=== PATIENT | female | born 1965 ===

== ENCOUNTER 2018-04-26 23:18 | Emergency (ER) | payer BC ==
[~2018-04-26] VITALS: Ht 162.6 cm; Wt 99.8 kg
[2018-04-26] MEDS ORDERED: DEXILANT30 MG ORAL (23:30)
[2018-04-26] MEDS ORDERED: CRESTOR10 M2 ORAL (23:31)
[2018-04-26] MEDS ORDERED: ZYBAN150 MG ORAL (23:31)
--- NOTE | 2018-04-26 23:37 | NUR ---
ED Nurse Note: Patient reports pain in the left hand that radiates to elbow. Patient reports pain began after she fluffed pillows. Patient notes no other trauma.
[2018-04-26 23:38] VITALS: BP 125/78
[2018-04-26] MEDS ORDERED: Norco 5mg/325mg tab ORAL ONE (23:45)
[2018-04-26] MEDS ORDERED: HYDROCODON-ACE1 EA15 ORAL (23:50)
[2018-04-26] MEDS ORDERED: IBUPROFEN600 MG ORAL (23:50)
--- NOTE | 2018-04-26 23:50 | Emergency Room Report ---
History of Present Illness General Chief Complaint: Upper Extremity Injury Source: Patient Present Illness [facility] This is a 53-year-old female who is right-hand dominant. She presents with left wrist pain. This occur last week after she was lifting a couch. She felt pain and since then fell swelling and pain. Pain is 7 out of 10. Worse with twisting and movement. Better with rest. No trauma. No fever chills but no nausea no vomiting. Never had this problem before. I see has not help. Allergies: Coded Allergies: CAPSAICIN (Verified Allergy, Unknown, 04/26/18) CEFUROXIME (Verified Allergy, Unknown, 04/26/18) MENTHOL (Verified Allergy, Unknown, 04/26/18) NAPROXEN (Verified Allergy, Unknown, 04/26/18) Patient History Past Medical History: see triage record, old chart reviewed Past Surgical History: other Pertinent Family History: none Social History: Denies: smoking Last Menstrual Period: HX of hysterectomy Now: No Immunizations: other Reviewed Nursing Documentation: PMH: Agreed; PSxH: Agreed Nursing Documentation-PMH Hx COPD: Yes - pt stated Slight case of COPD Review of Systems Eye: Denies: eye pain, blurred vision ENT: Denies: ear pain, nose congestion, throat swelling Respiratory: Denies: cough, shortness of breath Cardiovascular: Denies: chest pain, palpitations Gastrointestinal: Denies: abdominal pain, diarrhea, nausea, vomiting Musculoskeletal: Reports: joint pain; Denies: back pain Skin: Denies: rash Neurological: Denies: headache, numbness Endocrine: Denies: increased thirst, increased urine Hematologic/Lymphatic: Denies: easy bruising All Other Systems: negative except mentioned in HPI Physical Exam Vital Signs Date Time Temp Pulse Resp B/P (MAP) Pulse Ox O2 Delivery O2 Flow Rate FiO2 04/26/18 23:21 98.1 67 15 125/78 99 Room Air vitals normal Sp02 EP Interpretation: reviewed, normal General Appearance: well appearing, no apparent distress, alert Head: normocephalic, atraumatic Eyes: bilateral eye PERRL, bilateral eye EOMI ENT: hearing grossly normal, normal pharynx Neck: full range of motion, supple, no meningismus Respiratory: chest non-tender, lungs clear, normal breath sounds Cardiovascular #1: regular rate, rhythm, no murmur Gastrointestinal: normal bowel sounds, non tender, no mass, no organomegaly, no bruit, non-distended Musculoskeletal: back normal, gait/station normal, normal range of motion, tender - Left wrist: Tenderness over the proximal wrist on the volar aspect. Mild edema. Full range of motion however. No deformity. Pulses normal. Neurologic: alert, oriented x3 Psychiatric: mood/affect normal Skin: warm/dry Procedures Splinting Splinting : Consent: Verbal Location: Left wrist Pre-Made Type: velcro Splint: volar Pre-Proc Neuro Vasc Exam: normal Post-Proc Neuro Vasc Exam: normal Patient Tolerated: Well Complications: None Medical Decision Making Diagnostic Impression: Primary Impression: Left wrist sprain Qualified Codes: S63.502A - Unspecified sprain of left wrist, initial encounter ER Course Patient with wrist sprain. No fracture dislocation. No evidence of any septic joint. We'll discharge home with splinting and anti-inflammatory medication. Other X-Ray Diagnostic Results Other X-Ray Diagnostic Results : X-Ray ordered: Left wrist x-rays # of Views/Limited Vs Complete: 3 View Indication: Pain EP Interpretation: Yes Interpretation: no dislocation, no soft tissue swelling, no fractures Impression: No acute disease Electronically Signed by: Delfin Larry MD Last Vital Signs Date Time Temp Pulse Resp B/P (MAP) Pulse Ox O2 Delivery O2 Flow Rate FiO2 04/26/18 23:38 98.1 86 15 125/78 99 Room Air Status: improved Disposition: HOME, SELF-CARE Condition: Stable Scripts Ibuprofen* (MOTRIN*) 600 Mg Tablet 600 MG ORAL THREE TIMES A DAY, #30 TAB 0 Refills Prov: Delfin Larry MD 04/26/18 Hydrocodone/Acetaminophen 5-325* (HYDROCODONE/ACETAMINOPHEN 5-325*) 1 Each Tablet 1 TAB ORAL Q6H PRN for For Pain, #15 TAB 0 Refills Prov: Delfin Larry MD 04/26/18 Referrals: NON PHYSICIAN (PCP) Additional Instructions: Follow-up with your doctor in 7 days. Worse splint for comfort. Ice pack to the area. Return if symptom worsen. Delfin Larry MD Apr 26, 2018 23:50
--- NOTE | 2018-04-27 00:17 | NUR ---
ED Nurse Note: Patient provided with imaging, pain medication and a splint. Discharged in stable condition, A&Ox3, vss, ambulatory with steady gait. ID band removed. patient verbalized understanding of discharge instructions and all questions were answered.
[2018-04-27 00:19] VITALS: BP 125/78
--- NOTE | 2018-04-27 12:23 | Diagnostic Imaging Report ---
Clinical Indication:Pain in left wrist for 2 days after trauma Technique: 3 views of the left wrist Comparison: None Findings: No acute fractures. No dislocations. Joint spaces are preserved. Impression: Negative
== END 2018-04-27 00:20 | disposition home or self-care (01) ==
LOC: EMR 23:43
DX: S63.502A Unspecified sprain of left wrist, initial encounter (principal); X50.0XXA Overexertion from strenuous movement or load, initial encounter; Y92.9 Unspecified place or not applicable
CPT/HCPCS: 99283